=== PATIENT | male | born 1975 | race Caucasian/White ===

== ENCOUNTER → 2023-12-06 10:10 | Outpatient (REF) | payer OTHER, SELFPAY ==
[2023-12-06 11:54] LABS: ALT (SGPT) 77 U/L (0-50); AST (SGOT) 42 U/L (17-59); Albumin 4.6 g/dl (3.5-5.0); Alkaline Phosphatase 80 U/L (38-126); Blood Urea Nitrogen 16 mg/dl (9-20); Calcium 9.5 mg/dl (8.4-10.2); Carbon Dioxide 29 mmol/L (22-30); Chloride 105 mmol/L (98-107); Glucose 93 mg/dl (70-99); Potassium 4.7 mmol/L (3.5-5.1); Sodium 143 mmol/L (135-145); Total Bilirubin 2.5 mg/dl (0.2-1.3); Total Protein 7.4 g/dl (6.3-8.2); eGFR > 60.00
== END ==
LOC: HWRAD 10:10
PROVIDERS: ATTENDING PHYSICIAN Internal Medicine
DX: R10.30 Lower abdominal pain, unspecified (principal)
CPT/HCPCS: 36415; 74018; 80053

== ENCOUNTER → 2023-12-09 11:06 | Outpatient (REF) | payer OTHER, SELFPAY | LOC: HWRAD 11:06 | PROVIDERS: ATTENDING PHYSICIAN Internal Medicine | DX: R10.30 Lower abdominal pain, unspecified (principal) | CPT/HCPCS: 74177; Q9967 ==

== ENCOUNTER → 2024-09-17 11:24 | Outpatient (REF) | payer OTHER, SELFPAY | LOC: PAVMRI 11:24 | PROVIDERS: ATTENDING PHYSICIAN Internal Medicine Hematology & Oncology; FAMILY PHYSICIAN Internal Medicine | DX: D56.1 Beta thalassemia (principal); E83.10 Disorder of iron metabolism, unspecified | CPT/HCPCS: 74183; A9575 ==